=== PATIENT | male | born 1980 | race Two or more races ===

== ENCOUNTER 2022-08-24 02:51 | Emergency (ER) | payer BC, OTHER ==
[~2022-08-24] VITALS: Ht 185.4 cm; Wt 95.3 kg
--- NOTE | 2022-08-24 03:17 | NUR ---
[id number] C/O PENILE PAIN & BLEEDING S/P SEXUAL INTERCOURSE
--- NOTE | 2022-08-24 03:32 | NUR ---
Patient eloped from facility. ER DR. DREW DUARTE notified.
[2022-08-24 04:48] VITALS: BP 133/80
== END 2022-08-24 06:22 | disposition left against medical advice (07) ==
LOC: ER 02:53
DX: Z53.21 Procedure and treatment not carried out due to patient leaving prior to being seen by health care provider (principal)